=== PATIENT | male | born 1940 | race African-American/Black ===

== ENCOUNTER 2016-06-24 11:16 | Emergency (ER) | payer MEDICARE, OTHER ==
[~2016-06-24] VITALS: Ht 180.3 cm; Wt 82.5 kg
[2016-06-24] MEDS ORDERED: CLINDAMYCIN PHOS 150 MG/ML 4 ML VIAL IM ONE (13:00)
[2016-06-24 13:10] VITALS: BP 126/89
== END 2016-06-24 14:05 | disposition home or self-care (01) ==
LOC: EMS 11:18
DX: L02.91 Cutaneous abscess, unspecified (principal); L03.114 Cellulitis of left upper limb; F17.210 Nicotine dependence, cigarettes, uncomplicated; F11.90 Opioid use, unspecified, uncomplicated
CPT/HCPCS: 96372; 99283; 99406; S0077

== ENCOUNTER 2016-11-11 22:39 | Emergency (ER) | payer MEDICARE, OTHER ==
[~2016-11-11] VITALS: Ht 182.2 cm; Wt 83.2 kg
[2016-11-11 23:43] LABS: BASOPHILS % (AUTO) 0.2 % (0.0-2.0); EOSINOPHILS % (AUTO) 0.3 % (1.0-6.0); HEMATOCRIT 33.4 % (41-53); HEMOGLOBIN 11.4 g/dL (13.5-17.5); LYMPHOCYTES # (AUTO) 0.8 K/uL (1.0-4.8); LYMPHOCYTES % (AUTO) 11.4 % (22.0-44.0); MEAN CORPUSCULAR HEMOGLOBIN 26.5 pg (26.0-34.0); MEAN CORPUSCULAR HGB CONC 34.1 G/dL (31.0-37.0); MEAN CORPUSCULAR VOLUME 78 fL (80-100); MONOCYTES # (AUTO) 0.5 K/uL (0.1-1.0); MONOCYTES % (AUTO) 7.4 % (2.0-9.0); NEUTROPHILS # (AUTO) 5.9 K/uL (1.8-7.7); NEUTROPHILS % (AUTO) 80.7 % (40.0-70.0); PLATELET COUNT (AUTO) 126 K/uL (150-450); RED CELL DISTRIBUTION WIDTH 16.9 % (11.5-14.5); WHITE BLOOD COUNT (AUTO) 7.4 K/uL (4.5-11.0)
[2016-11-11 23:53] LABS: ANION GAP 10 mmol/L (8-16); CARBON DIOXIDE 27 mmol/L (22-29); CHLORIDE 101 mmol/L (98-107); CREATININE 1.02 mg/dL (0.60-1.30); GLOMERULAR FILTR. RATE CALC > 60 mL/min (>60); POTASSIUM 3.7 mmol/L (3.5-5.1); SODIUM SERUM 138 mmol/L (136-145); UREA NITROGEN, BLOOD 18 mg/dL (7-18)
[2016-11-11 23:56] LABS: INR 1.1 (0.9-1.1); PROTHROMBIN TIME 11.7 SEC (9.4-11.6)
[2016-11-12 00:18] LABS: ALANINE AMINOTRANSFERASE 40 U/L (12-78); ALBUMIN 3.7 g/dL (3.4-5.0); ASPARTATE AMINOTRANSFERASE 41 U/L (15-37); BILIRUBIN,TOTAL 1.2 mg/dL (0.1-1.0); CREATINE KINASE MB 1.4 ng/mL (0-5); CREATINE KINASE, TOTAL 168 U/L (39-308); TOTAL PROTEIN, SERUM 10.2 g/dL (6.4-8.2)
[2016-11-12 01:00] LABS: APPEARANCE,URINE CLEAR (CLEAR); GLUCOSE, URINE (UA) NEGATIVE (NEGATIVE); KETONES,URINE NEGATIVE (NEGATIVE); LEUKOCYTE ESTERASE ,URINE NEGATIVE (NEGATIVE); OCCULT BLOOD,URINE NEGATIVE (NEGATIVE); PROTEIN,URINE NEGATIVE (NEGATIVE)
[2016-11-12 01:04] LABS: ADD UA MICROSCOPIC NO
[2016-11-12 01:05] LABS: B-TYPE NATRIURETIC PEPTIDE 26 pg/mL (0-100)
[2016-11-12] MEDS ORDERED: CloNIDine HCL 0.2 MG TABLET PO ONE (01:15)
[2016-11-12 01:40] VITALS: BP 165/94
== END 2016-11-12 01:42 | disposition home or self-care (01) ==
LOC: EMS 22:40
DX: R60.0 Localized edema (principal); I10 Essential (primary) hypertension; R19.00 Intra-abdominal and pelvic swelling, mass and lump, unspecified site; R05 Cough; F17.210 Nicotine dependence, cigarettes, uncomplicated; F11.10 Opioid abuse, uncomplicated
CPT/HCPCS: 93005; 99285

== ENCOUNTER 2016-11-12 18:07 | Emergency (ER) | payer MEDICARE, OTHER ==
[~2016-11-12] VITALS: Ht 180.3 cm; Wt 81.8 kg
[2016-11-12 19:24] VITALS: BP 129/88
== END 2016-11-12 19:30 | disposition home or self-care (01) ==
LOC: EMS 18:10
DX: I10 Essential (primary) hypertension (principal); F17.210 Nicotine dependence, cigarettes, uncomplicated; F11.90 Opioid use, unspecified, uncomplicated; Z76.0 Encounter for issue of repeat prescription
CPT/HCPCS: 99283; 99406

== ENCOUNTER 2016-12-05 14:26 | Emergency (ER) | payer MEDICARE, OTHER ==
[~2016-12-05] VITALS: Ht 180.3 cm; Wt 84.5 kg
[2016-12-05] MEDS ORDERED: AMLO2.5T PO (14:35)
[2016-12-05 17:00] VITALS: BP 123/88
== END 2016-12-05 17:11 | disposition home or self-care (01) ==
LOC: EMS 14:28
DX: Z76.0 Encounter for issue of repeat prescription (principal); I10 Essential (primary) hypertension; F17.210 Nicotine dependence, cigarettes, uncomplicated; F11.90 Opioid use, unspecified, uncomplicated
CPT/HCPCS: 99283

== ENCOUNTER 2017-02-08 01:32 | Emergency (ER) | payer MEDICARE, OTHER ==
[~2017-02-08] VITALS: Ht 180.3 cm; Wt 83.0 kg
[~2017-02-08 01:32] MED LIST: AMLO2.5T PO
[2017-02-08 02:31] VITALS: BP 117/81
== END 2017-02-08 02:34 | disposition home or self-care (01) ==
LOC: EMS 01:33
DX: S93.602A Unspecified sprain of left foot, initial encounter (principal); I10 Essential (primary) hypertension; F17.210 Nicotine dependence, cigarettes, uncomplicated; X58.XXXA Exposure to other specified factors, initial encounter; Y93.89 Activity, other specified; Y92.89 Other specified places as the place of occurrence of the external cause; Y99.8 Other external cause status
CPT/HCPCS: 99284

== ENCOUNTER 2017-02-18 16:41 | Emergency (ER) | payer MEDICARE, OTHER ==
[~2017-02-18] VITALS: Ht 180.3 cm; Wt 81.8 kg
[2017-02-18 19:06] VITALS: BP 139/89
== END 2017-02-18 19:24 | disposition home or self-care (01) ==
LOC: EMS 16:43
DX: R76.11 Nonspecific reaction to tuberculin skin test without active tuberculosis (principal); I10 Essential (primary) hypertension; F17.210 Nicotine dependence, cigarettes, uncomplicated; Z00.00 Encounter for general adult medical examination without abnormal findings
CPT/HCPCS: 71020; 99284; 99406

== ENCOUNTER 2017-08-11 14:02 | Emergency (ER) | payer MEDICARE, OTHER ==
[~2017-08-11] VITALS: Ht 180.3 cm; Wt 86.0 kg
[2017-08-11] MEDS ORDERED: CLON-570 PO (14:07)
[2017-08-11] MEDS ORDERED: TIZA4TAB4 PO (14:07)
[2017-08-11 15:27] VITALS: BP 130/84
== END 2017-08-11 15:41 | disposition home or self-care (01) ==
LOC: EMS 14:02
DX: L03.114 Cellulitis of left upper limb (principal); L03.113 Cellulitis of right upper limb; I10 Essential (primary) hypertension; F17.210 Nicotine dependence, cigarettes, uncomplicated; F11.10 Opioid abuse, uncomplicated; Z79.899 Other long term (current) drug therapy
CPT/HCPCS: 99283; 99406